=== PATIENT | male | born 1985 | race Caucasian/White ===

== ENCOUNTER 2017-01-23 19:39 | Emergency (ER) | payer SELFPAY ==
[~2017-01-23] VITALS: Ht 177.8 cm; Wt 60.9 kg
[2017-01-23 19:56] VITALS: TEMP 36.4; Ht 177.8 cm; Wt 60.9 kg
--- NOTE | 2017-01-23 20:22 | EMERGENCY ROOM VISIT NOTE ---
History Report prepared by Zi: Jayashree Segovia Under the Supervision of: Dr. Kb Crocker M.D. First contact with patient: 20:03 Chief Complaint: ABDOMINAL PAIN Stated Complaint: STOMACH AND SWELLING History of Present Illness The patient is a 31 year old male who presents to the Emergency Room with complaints of intermittent right sided abdominal pain and swelling that started a month ago. Associated symptoms include nausea and weight loss. The patient states that his symptoms started as mild swelling of his abdomen. He was evaluated by urgent care who were unable to find a cause of this swelling. Patient notes that he then started to develop pain in this area of his abdomen. He notices that it worsens with eating. The patient has had multiple blood draws and radiographic testing for these symptoms, which have been negative thus far. The patient admits to heavy drinking. He denies hematochezia, melena , vomiting, hematuria, and any additional associated symptoms. Patient reports feeling well at this time. Source of History: patient Onset: a month ago Position: abdomen Timing: intermittent Modifying Factors (Worsening): eating Modifying Factors (Relieving): other (None) Associated Symptoms: + nausea, No hematochezia, No melena, No vomiting Review of Systems See HPI for pertinent positives & negatives. A total of 10 systems reviewed and were otherwise negative. Past Medical & Surgical Medical Problems: (1) Patient denies medical problems Old medical records were reviewed. Nurse's notes were reviewed and I agree with. Family History Unknown family medical history Social History Smoking Status: Current Every Day Smoker Alcohol Use: heavy Drug Use: marijuana, other (Ecstasy 1 month ago ) Marital Status: in relationship Occupation Status: employed Current/Historical Medications No Active Prescriptions or Reported Meds Allergies Coded Allergies: No Known Allergies (Unverified , 01/23/17) Physical Exam Vital Signs Date Time Temp Pulse Resp B/P Pulse Ox O2 Delivery O2 Flow Rate FiO2 01/24/17 00:38 99 18 137/97 97 Room Air 01/23/17 22:28 93 18 131/81 97 Room Air 01/23/17 19:56 36.4 121 20 141/87 96 Room Air Physical Exam General: Non ill appearing, slender young male, slightly anxious appearing, in no acute distress. HEENT: Normal cephalic atraumatic. Pupils are equal round and reactive to light. Extraocular movements are intact. Oropharynx is pink with moist mucous membranes. No swelling of the mouth lips or tongue. Neck: Supple with a midline trachea. No meningeal signs or stiffness, no JVD or bruits. No Stridor. Chest: Clear to auscultation bilaterally. No wheezes or rhonchi. No increased work of breathing. Heart: regular rate and rhythm. Abdomen: Minimally tender centrally and diffusely. Soft, nondistended without rebound guarding or rigidity. Extremities: No cyanosis clubbing or edema. No calf tenderness or assymetry Spine/Back. Non tender to palpation. No CVA tenderness Skin: Good turgor without rashes. Neurologic exam: Cranial nerves two through 12 are intact. Motor and sensation are intact and symmetrical throughout. Medical Decision & Procedures ER Provider Diagnostic Interpretation: CT results per statrad interpretation and my review: CT ABDOMEN & PELVIS: Normal appendix. No GI or urinary tract obstruction. ' Radiologist: Júnior Steele M.D. Laboratory Results 01/23/17 20:50 Red Blood Count 4.77, Mean Corpuscular Volume 89.9, Mean Corpuscular Hemoglobin 32.7, Mean Corpuscular Hemoglobin Concent 36.4, Mean Platelet Volume 11.5, Neutrophils (%) (Auto) 62.6, Lymphocytes (%) (Auto) 26.1, Monocytes (%) (Auto) 8.3, Eosinophils (%) (Auto) 2.5, Basophils (%) (Auto) 0.4, Neutrophils # (Auto) 5.30, Lymphocytes # (Auto) 2.21, Monocytes # (Auto) 0.70, Eosinophils # (Auto) 0.21, Basophils # (Auto) 0.03 01/23/17 20:50 Test 01/23/17 20:48 01/23/17 20:50 Urine Color YELLOW Urine Appearance CLEAR (CLEAR) Urine pH 5.0 (4.5-7.5) Urine Specific [place] 1.012 (1.000-1.030) Urine Protein NEG (NEG) Urine Glucose (UA) NEG (NEG) Urine Ketones 1+ (NEG) Urine Occult Blood NEG (NEG) Urine Nitrite NEG (NEG) Urine Bilirubin NEG (NEG) Urine Urobilinogen NEG (NEG) Urine Leukocyte Esterase NEG (NEG) White Blood Count 8.46 K/uL (4.8-10.8) Red Blood Count 4.77 M/uL (4.7-6.1) Hemoglobin 15.6 g/dL (14.0-18.0) Hematocrit 42.9 % (42-52) Mean Corpuscular Volume 89.9 fL (80-100) Mean Corpuscular Hemoglobin 32.7 pg (25-34) Mean Corpuscular Hemoglobin Concent 36.4 g/dl (32-36) Platelet Count 195 K/uL (130-400) Mean Platelet Volume 11.5 fL (7.4-10.4) Neutrophils (%) (Auto) 62.6 % Lymphocytes (%) (Auto) 26.1 % Monocytes (%) (Auto) 8.3 % Eosinophils (%) (Auto) 2.5 % Basophils (%) (Auto) 0.4 % Neutrophils # (Auto) 5.30 K/uL (1.4-6.5) Lymphocytes # (Auto) 2.21 K/uL (1.2-3.4) Monocytes # (Auto) 0.70 K/uL (0.11-0.59) Eosinophils # (Auto) 0.21 K/uL (0-0.5) Basophils # (Auto) 0.03 K/uL (0-0.2) RDW Standard Deviation 41.5 fL (36.4-46.3) RDW Coefficient of Variation 12.7 % (11.5-14.5) Immature Granulocyte % (Auto) 0.1 % Immature Granulocyte # (Auto) 0.01 K/uL (0.00-0.02) Anion Gap 7.0 mmol/L (3-11) Est Creatinine Clear Calc Drug Dose 94.8 ml/min Estimated GFR () 118.8 Estimated GFR (Non- 102.5 BUN/Creatinine Ratio 13.6 (10-20) Calcium Level 8.9 mg/dl (8.5-10.1) Total Bilirubin 0.8 mg/dl (0.2-1) Direct Bilirubin 0.3 mg/dl (0-0.2) Aspartate Amino Transf (AST/SGOT) 13 U/L (15-37) Alanine Aminotransferase (ALT/SGPT) 29 U/L (12-78) Alkaline Phosphatase 54 U/L (45-117) Total Protein 7.5 gm/dl (6.4-8.2) Albumin 4.5 gm/dl (3.4-5.0) Lipase 140 U/L (73-393) Thyroid Stimulating Hormone (TSH) 2.900 uIu/ml (0.300-4.500) Laboratory studies as stated above per my review. ED Course 2004: Past medical records reviewed. The patient was evaluated in room C3, and a complete history and physical examination were performed. 2020: I spoke with case management about the patient's lack of medical insurance. They will further evaluate the patient's case. 0058: Upon reevaluation, the patient is resting more comfortably. I discussed the results and treatment plan with the patient. He verbalized agreement of the treatment plan. The patient was discharged home. Medical Decision Differentials include, but are not limited to; Pancreatitis, malignancy, anxiety , electrolyte or metabolic abnormality. This patient comes in as described above. He was placed in room C3. He is here for treatment and evaluation of abdominal symptoms. He's had this for about a month. He's had intermittent problems with constipation. He has also had intermittent abdominal pain. He's had a gallbladder and abdominal ultrasound and blood work unremarkable. He looks well on exam his abdomen is benign. IV access established blood work was obtained. He has no white count or fever to suggest infection. He has no acute electrolyte or metabolic abnormalities . His thyroid is within normal limits with a normal TSH. His urinalysis does not suggest UTI. Given his ongoing symptoms, I did get a CAT scan with IV contrast and he has no acute findings seen. He will be discharged home. He was encouraged [facility] as he does not have a local doctor I told him they could get him in with GI potentially and he may ultimately endoscopy if the symptoms persist. He may be that he [id number] bile or another diagnosis which could only be made with endoscopy. He should have her mild diet and return if: increasing pain, worsening of symptoms, fever or chills, any new problems or concerns. He is happy with plan and discharged to home. Impression Primary Impression: Central abdominal pain Scribe Attestation The scribe's documentation has been prepared under my direction and personally reviewed by me in its entirety. I confirm that the note above accurately reflects all work, treatment, procedures, and medical decision making performed by me. Departure Information Dispostion Home / Self-Care Prescriptions No Active Prescriptions or Reported Meds Forms HOME CARE DOCUMENTATION FORM, IMPORTANT VISIT INFORMATION Patient Instructions My [facility] Additional Instructions Rest Drink plenty of fluids Mild diet Return if: Worsening of symptoms, shortness of breath, fever or chills, increasing pain, any new problems or concerns Follow-up with [facility] this coming week for further treatment and evaluation possible GI referral
[2017-01-23] MEDS ORDERED: OPTIRAY 320 IV PRN (20:30)
[2017-01-23 21:02] LABS: BASO % 0.4 %; BASO ABS # 0.03 K/uL (0-0.2); COMPLETE YES; EOS % 2.5 %; HEMATOCRIT 42.9 % (42-52); IG% 0.1 %; LYMPH % 26.1 %; LYMPH ABS # 2.21 K/uL (1.2-3.4); MEAN CELL VOLUME 89.9 fL (80-100); MEAN CORPUSCULAR HEMOGLOBIN 32.7 pg (25-34); MEAN CORPUSCULAR HGB CONC 36.4 g/dl (32-36); MEAN PLATELET VOLUME 11.5 fL (7.4-10.4); MONO % 8.3 %; NEUT % 62.6 %; PLATELET COUNT 195 K/uL (130-400); RED BLOOD COUNT 4.77 M/uL (4.7-6.1); WHITE BLOOD COUNT 8.46 K/uL (4.8-10.8)
[2017-01-23 21:09] LABS: URINE APPEARANCE CLEAR (CLEAR); URINE BILIRUBIN NEG (NEG); URINE COLOR YELLOW; URINE NITRITE NEG (NEG); URINE SPECIFIC GRAVITY 1.012 (1.000-1.030); UROBILINOGEN NEG (NEG)
[2017-01-23 21:11] LABS: MANUAL MICROSCOPIC REQUIRED? NO; REVIEW REQ? NO
[2017-01-23 21:20] LABS: BUN/CREATININE RATIO 13.6 (10-20); CALCIUM 8.9 mg/dl (8.5-10.1); CREATININE 0.99 mg/dl (0.60-1.40); POTASSIUM 3.5 mmol/L (3.5-5.1)
[2017-01-23 21:31] LABS: THYROID STIMULATING HORMONE 2.9 uIu/ml (0.300-4.500)
[2017-01-24 00:38] VITALS: BP 137/97; PULSE 99; O2SAT 97
--- NOTE | 2017-01-24 05:28 | DIAGNOSTIC IMAGING REPORT ---
ABDOMEN AND PELVIS CT WITH IV AND ORAL CONTRAST CT DOSE: 250.97 mGy.cm HISTORY: Pain. Infection. eval for colitis, infection, mass TECHNIQUE: Multiaxial CT images of the abdomen and pelvis were performed following the use of intravenous and oral contrast. COMPARISON STUDY: None. FINDINGS: The lung bases are clear. The liver, spleen, gallbladder, pancreas, kidneys, and adrenal glands are within normal limits. No bowel wall thickening or obstruction. The pelvic organs are unremarkable. No suspicious lytic or blastic osseous lesions. Normal appendix IMPRESSION: No significant abnormality identified within the abdomen or pelvis. Electronically signed by: Reinaldo Taylor M.D. 01/24/2017 5:26 AM Dictated Date/Time: 01/24/2017 5:25 AM
== END 2017-01-24 01:05 | disposition home or self-care (01) ==
LOC: C.EDB 19:44 → C.EDC 01-24 01:05
DX: R10.9 Unspecified abdominal pain (principal); F17.210 Nicotine dependence, cigarettes, uncomplicated; F12.10 Cannabis abuse, uncomplicated